=== PATIENT | male | born 1965 | race Caucasian/White ===

== ENCOUNTER 2018-01-24 13:37 | Outpatient (CLI) | payer OTHER | END 2018-01-24 15:53 | disposition home or self-care (01) | LOC: EKG 13:37 | DX: R07.89 Other chest pain (principal) ==

== ENCOUNTER 2018-01-24 13:45 | Outpatient (CLI) | payer OTHER | END 2018-01-24 15:52 | disposition home or self-care (01) | LOC: LAB 13:45 | DX: R50.9 Fever, unspecified (principal) ==

== ENCOUNTER → 2018-01-24 | Outpatient (CLI) | payer OTHER ==
[~2018-01-24] MED LIST: ANTIVERT25 M1 PO; CLARITIN10 MG PO; FLONASE16 GM NS; TESSALON200 MG PO; ZITHROMAX500 MG PO
== END | disposition home or self-care (01) ==
LOC: PPHC 13:13
DX: R53.81 Other malaise (principal); R53.83 Other fatigue

== ENCOUNTER 2018-01-27 10:07 | Outpatient (CLI) | payer OTHER | END 2018-01-28 10:26 | disposition home or self-care (01) | LOC: LAB 10:07 | DX: R53.83 Other fatigue (principal); R53.1 Weakness; R51 Headache; I10 Essential (primary) hypertension ==

== ENCOUNTER → 2018-01-27 | Outpatient (CLI) | payer OTHER | END | disposition home or self-care (01) | LOC: PPHC 12:17 | DX: Z01.89 Encounter for other specified special examinations (principal) ==